=== PATIENT | male | born 1970 | race American Indian/Alaskan Native ===

== ENCOUNTER 2020-12-05 11:38 | Emergency (ER) | payer OTHER ==
--- NOTE | 2020-12-05 13:13 | Emergency Department Report ---
ED Laceration HPI - HPI Chief Complaint: Laceration/Recheck/Suture Stated Complaint: FINGER INJURY Time Seen by Provider: 12/05/20 12:13 Occurred When: Yesterday Location: Upper Extremity Tetanus Status: Up to Date (2018) Laceration Symptoms: Yes Pain, No Foreign Body Sensation, No Numbness, No Weakness Other History: This is a 50-year-old male nontoxic, well nourished in appearance, no acute signs of distress presents to the ED with c/o of right middle finger laceration that occurred yesterday morning around 8 AM. Patient stated it happened with a chainsaw. Stated is up-to-date with tetanus as of 2017. Patient denies decreased sensation or range of motion. Patient stated bleeding is under control. Denies any numbness, tingling, fever, chills, nausea, vomiting, chest pain, shortness of breath, headache or stiff neck. Patient denies any allergies to significant past medical history. ED Review of Systems ROS: Stated complaint: FINGER INJURY Other details as noted in HPI Comment: All other systems reviewed and negative Constitutional: denies: chills, fever Eyes: denies: eye pain, eye discharge, vision change ENT: denies: ear pain, throat pain Respiratory: denies: cough, shortness of breath, wheezing Cardiovascular: denies: chest pain, palpitations Endocrine: no symptoms reported Gastrointestinal: denies: abdominal pain, nausea, diarrhea Genitourinary: denies: urgency, dysuria Musculoskeletal: denies: back pain, joint swelling, arthralgia Skin: denies: rash, lesions Neurological: denies: headache, weakness, paresthesias Psychiatric: denies: anxiety, depression Hematological/Lymphatic: denies: easy bleeding, easy bruising ED Past Medical Hx - Past Medical History Previous Medical History?: No - Surgical History Past Surgical History?: No - Social History Smoking Status: Current Every Day Smoker Substance Use Type: None - Medications Home Medications: Home Medications Medication Instructions Recorded Confirmed Last Taken Type cephALEXin [Keflex] 500 mg PO Q8HR #21 cap 12/05/20 Unknown Rx Laceration Physical Exam - Exam General: Vital signs noted. No distress. Alert and acting appropriately. Wound Length (cm): 2 (Right middle finger) Laceration Location: Upper Extremity Laceration Exam: Yes Normal Distal CMS, No Foreign Body, No Exposed Tendon, Vessel, or Nerve, No Tendon Injury ED Course Vital Signs 12/05/20 14:32 Temperature 98.6 F Pulse Rate 80 Respiratory 20 Rate Blood Pressure 105/82 [Left] O2 Sat by Pulse 99 Oximetry - Reevaluation(s) Reevaluation #1: 12/05/20 13:10 Patient is speaking in full sentences with no signs of distress noted. ED Medical Decision Making - Radiology Data [facility] [address] [place] [address] XRay Report Signed Patient: YEISON MCGRAW MR#: [id number] 25 : 1970 Acct:[id number] Age/Sex: 50 / M ADM Date: 12/05/20 Loc: ED Attending Dr: Ordering Physician: LOGAN LAMA NP Date of Service: 12/05/20 Procedure(s): XR finger(s) 2+V RT Accession Number(s): [id number] cc: LOGAN LAMA NP Fluoro Time In Minutes: RIGHT RING FINGER 3 VIEWS INDICATION / CLINICAL INFORMATION: lac with pain. COMPARISON: None available. FINDINGS: Flexion deformity of the ring finger at the PIP joint. There is degenerative change in this joint as well. No other significant skeletal abnormality Signer Name: Logan Bales MD FACR Signed: 12/05/2020 12:53 PM Workstation Name: [id number] Transcribed By: MS Dictated By: Logan Bales MD Electronically Authenticated By: Logan Bales MD Signed Date/Time: 12/05/20 1253 DD/ 1252 TD/TT: - Medical Decision Making This is a 50-year-old male that presents with laceration. Patient is stable and was examined by me. The laceration suturing has not been performed due to laceration occurring more than 24 hours. Patient is notified of the x-ray results with no questions noted by the patient. The area has been properly cleaned and a sterile dressing has been applied. Patient was educated on proper wound care. Patient is discharged with clindamycin. Patient was instructed to refer to Follow-up with a primary care doctor in 3-5 days or if symptoms worsen and continue return to emergency room as soon as possible. At time of discharge, the patient does not seem toxic or ill in appearance. No acute signs of distress noted. Patient agrees to discharge treatment plan of care. No further questions noted by the patient. Critical care attestation.: If time is entered above; I have spent that time in minutes in the direct care of this critically ill patient, excluding procedure time. ED Disposition Clinical Impression: Finger laceration Qualifiers: Encounter type: initial encounter Finger: middle finger Damage to nail status: without damage Foreign body presence: without foreign body Laterality: right Qualified Code(s): S61.212A - Laceration without foreign body of right middle finger without damage to nail, initial encounter Disposition: DC- TO HOME OR SELFCARE Is pt being admited?: No Does the pt Need Aspirin: No Condition: Stable Instructions: Laceration Care, Adult, Wound Care, Adult Additional Instructions: Follow-up with a primary care doctor in 3-5 days or if symptoms worsen and continue return to emergency room as soon as possible. Prescriptions: cephALEXin [Keflex] 500 mg PO Q8HR #21 cap Referrals: PRIMARY MD MOE [Primary Care Provider] - 3-5 Days QUIANA LATHAM MD [Staff Physician] - 3-5 Days Time of Disposition: 14:21
--- NOTE | 2020-12-05 14:12 | XRay Report ---
RIGHT RING FINGER 3 VIEWS INDICATION / CLINICAL INFORMATION: lac with pain. COMPARISON: None available. FINDINGS: Flexion deformity of the ring finger at the PIP joint. There is degenerative change in this joint as well. No other significant skeletal abnormality Signer Name: Logan Bales MD FACR Signed: 12/05/2020 12:53 PM Workstation Name: [id number]
[2020-12-05 14:33] VITALS: BP 105/82
== END 2020-12-05 15:20 | disposition home or self-care (01) ==
LOC: ED 11:38
DX: S61.212A Laceration without foreign body of right middle finger without damage to nail, initial encounter (principal); F17.200 Nicotine dependence, unspecified, uncomplicated; Z79.899 Other long term (current) drug therapy; X58.XXXA Exposure to other specified factors, initial encounter; Y93.89 Activity, other specified; Y92.89 Other specified places as the place of occurrence of the external cause; Y99.8 Other external cause status

== ENCOUNTER 2021-02-01 15:30 | Emergency (ER) | payer OTHER ==
[2021-02-01] MEDS ORDERED: KETOROLAC 30 MG/1 ML INJ IM ONE (19:50)
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
[2021-02-01 20:29] VITALS: BP 131/79
== END 2021-02-01 20:15 | disposition home or self-care (01) ==
LOC: ED 15:30
DX: M54.9 Dorsalgia, unspecified (principal); Z79.899 Other long term (current) drug therapy; Z87.891 Personal history of nicotine dependence; V49.59XA Passenger injured in collision with other motor vehicles in traffic accident, initial encounter; Y92.410 Unspecified street and highway as the place of occurrence of the external cause; Y93.89 Activity, other specified; Y99.8 Other external cause status
CPT/HCPCS: 96372; 99282; J1885